=== PATIENT | female | born 2000 | race American Indian/Alaskan Native ===

== ENCOUNTER 2021-09-06 04:21 | Outpatient (CLI) | payer OTHER ==
[2021-09-06 07:14] VITALS: BP 122/60
--- NOTE | 2021-09-06 07:24 | History and Physical Report ---
History of Present Illness Date of examination: 09/06/21 Chief complaint: "I haven't felt my baby move in two days" History of present illness: Pt is a 20 year old primigravida RENATA 10/01/21 at 36w3d who presents with complaint of no movement since yesterday (09/04/21). She reports that she has had care at [facility] geropsychologist in [facility] that she reports has been uncomplicated. She reported decreased movement last week to her provider and reports she was told that can be normal as the baby is getting larger. She then reports that yesterday she was very busy and is not sure if she felt the baby move or not, but this morning she is certain that she did not feel the baby move so she presented to triage. She does report contractions every 15 to 20 minutes, but denies vaginal bleeding or leakage of fluid. Her records are not available for review. The patient reports that her mother lives in [facility]. While in triage, the RN was unable to auscultate heart tones. An ultrasound was ordered which revealed no heart tones. The patient reports that she does not want to be treated at this hospital. Her mother is on the way and plans to take her to another hospital for a second opinion. Past History Past Medical History: other (Obesity ) Past Surgical History: other (Right ankle surgery with pins in place ) Social history: no significant social history - Obstetrical History Expected Date of Delivery: 10/01/21 Actual Gestation: 36 Week(s) 3 Day(s) : 1 Medications and Allergies Allergies Allergy/AdvReac Type Severity Reaction Status Date / Time No Known Allergies Allergy Unverified 09/06/21 05:34 Review of Systems All systems: negative - Vital Signs Vital signs: Vital Signs Pulse Pulse Ox 125 H 100 09/06/21 05:20 09/06/21 05:20 Temp Pulse Resp BP Pulse Ox 98.9 F 120 H 17 122/60 97 09/06/21 05:42 09/06/21 07:13 09/06/21 05:42 09/06/21 07:13 09/06/21 07:13 - Physical Exam Breasts: Positive: deferred Abdomen: Positive: soft (obese, gravid ). Negative: tenderness Uterus: Positive: enlarged (gravid ) - Obstetrical FHR: other (Absent ) Uterine Contraction Monitor Mode: External Uterine Contraction Pattern: Irregular Uterine Tone Measurement Phase: Resting Results All other labs normal. Assessment and Plan A: IUP at 36w3d Demise Morbid Obesity P: Pt declines treatment at this institution Her mother is here to pick her up and take her another facility of her choosing The patient understands that we are willing and able to care for her at this hospital but she declines treatment Pt encouraged to proceed directly to a hospital for treatment
--- NOTE | 2021-09-06 11:32 | Ultrasound Report ---
ULTRASOUND OBSTETRIC LIMITED INDICATION / CLINICAL INFORMATION: decreased movement. Clinical Gestational Age (GA) in weeks, days: 36, 0 TECHNIQUE: Transabdominal. COMPARISON: None available. FINDINGS: HEART RATE (beats per minute): 0 AMNIOTIC FLUID INDEX (cm) = no appreciable fluid on images provided. (normal = 7-24 cm) PRESENTATION: Cephalic. ADDITIONAL FINDINGS: None. IMPRESSION: 1. Findings compatible with demise. Signer Name: Kamari Pacheco II, MD Signed: 09/06/2021 6:14 AM Workstation Name: [id number]
== END 2021-09-06 07:31 | disposition home or self-care (01) ==
LOC: TRG 04:21 → APU 04:34 → TRG 07:31
PROVIDERS: ATTEND Obstetrics & Gynecology
DX: Z34.93 Encounter for supervision of normal pregnancy, unspecified, third trimester (principal); Z3A.36 36 weeks gestation of pregnancy
CPT/HCPCS: 59025; 76815